=== PATIENT | male | born 1990 | race Two or more races ===

== ENCOUNTER 2018-04-17 11:45 | Emergency (ER) | payer SELFPAY ==
[~2018-04-17] VITALS: Ht 182.9 cm; Wt 79.4 kg
[2018-04-17 12:15] VITALS: BP 144/88
[2018-04-17] MEDS ORDERED: MELA3TAB2 PO (12:37)
--- NOTE | 2018-04-17 12:37 | PHYS DOC ---
Past Medical History Past Medical History: No Pertinent History Past Surgical History: No Surgical History Additional Information: Non-smoker Alcohol Use: Occasionally Drug Use: None Adult General Chief Complaint Chief Complaint: Insomnia HPI HPI 27 year old male presents with reports of 2 week history of difficulty sleeping for the last 2 weeks. Reports was seen 2 days ago in clinic and was started on trazadone 50mg. Patient reports after taking the trazadone he started to have some increased palpitations. Reports he has some increased life stressors recently. Reports he is home all day because he is not working. Reports he will start to fall asleep and then "jolts awake" and cannot sleep again. Reports has been worse over the last week. Denies fever/chills. Denies trauma. Denies N/V/D. Denies suicidal or homicidal ideation. Review of Systems Review of Systems Constitutional: Denies fever or chills [] Eyes: Denies change in visual acuity, redness, or eye pain [] HENT: Denies nasal congestion or sore throat [] Respiratory: Denies cough or shortness of breath [] Cardiovascular: Denies chest pain; reports some palpitations after taking trazadone GI: Denies abdominal pain, nausea, vomiting, or diarrhea [] : Denies dysuria or hematuria [] Musculoskeletal: Denies back pain or joint pain [] Integument: Denies rash or skin lesions [] Neurologic: Reports intermittent headache; denies focal weakness or sensory changes [] Psychiatric: Reports anxiety and insomnia; denies suicidal or homicidal ideation. Complete systems were reviewed and found to be within normal limits, except as documented in this note. Current Medications Current Medications Current Medications Medications (Trade) Dose Ordered Sig/Wilda Start Time Stop Time Status Last Admin Dose Admin Lorazepam (Ativan) 0.5 mg 1X ONCE 04/17/18 12:45 04/17/18 12:46 DC 04/17/18 12:58 0.5 MG Allergies Allergies Allergies Coded Allergies Type Severity Reaction Last Updated Verified Penicillins Allergy Intermediate heart racing 04/17/18 Yes Physical Exam Physical Exam Constitutional: Well developed, well nourished, anxious HENT: Normocephalic, atraumatic, oropharynx moist Eyes: PERRL, EOMI, conjunctiva normal, no discharge. [] Neck: Normal range of motion, no tenderness, supple, no meningeal signs Cardiovascular: Heart rate regular rhythm, no murmur [] Lungs & Thorax: Bilateral breath sounds clear to auscultation [] Abdomen: Soft, no tenderness Skin: Warm, dry, no erythema, no rash. [] Back: No tenderness, no CVA tenderness. [] Extremities: No tenderness, ROM intact, no edema. [] Neurologic: Alert and oriented X 3, no motor or sensory deficits noted, no focal deficits noted. [] Psychologic: Affect anxious, denies suicidal or homicidal ideation Current Patient Data Vital Signs Vital Signs Date Time Temp Pulse Resp B/P (MAP) Pulse Ox O2 Delivery O2 Flow Rate FiO2 04/17/18 12:15 98.7 88 16 144/88 (106) 98 Room Air 98.7 EKG EKG [] Radiology/Procedures Radiology/Procedures [] Course & Med Decision Making Course & Med Decision Making Patient presents with history of insomnia x 2 weeks. Worse over the last week. Reports increased anxiety and life stressors. Denies suicidal or homicidal ideation. Symptomatic treatment provided with Ativan 0.5mg x 1. Rx for melatonin given. Patient advised to discontinue trazadone due to it causing palpitations with patient. Referral to [facility] given. Patient stable for discharge with outpatient follow-up with PCP/outpatient psychiatric services ( [facility]). Discussed findings and plan with patient and family, who acknowledge understanding and agreement. Dragon Disclaimer Dragon Disclaimer This electronic medical record was generated, in whole or in part, using a voice recognition dictation system. Departure Departure Impression: Primary Impression: Insomnia Additional Impression: Anxiety Disposition: 01 HOME, SELF-CARE Condition: STABLE Referrals: UNKNOWN PCP NAME (PCP) Patient Instructions: Anxiety and Panic Attacks, [id number], Insomnia-Brief Additional Instructions: Please follow up with [facility] to help with your anxiety and insomnia Scripts Melatonin (MELATONIN) 3 Mg Tablet 1 TAB PO QHS, #30 TAB 0 Refills Prov: LIZETH SOL DO 04/17/18 Problem Qualifiers Primary Impression: Insomnia Insomnia type: unspecified Qualified Codes: G47.00 - Insomnia, unspecified LIZETH SOL DO Apr 17, 2018 12:37
[2018-04-17] MEDS ORDERED: LORazepam 1 MG TABLET PO ONE (12:45)
== END 2018-04-17 13:03 | disposition home or self-care (01) ==
LOC: ER 11:45
DX: G47.00 Insomnia, unspecified (principal); R51 Headache; R00.2 Palpitations; F41.9 Anxiety disorder, unspecified; Z88.0 Allergy status to penicillin
CPT/HCPCS: 99282

== ENCOUNTER 2019-03-05 16:23 | Emergency (ER) | payer SELFPAY ==
[~2019-03-05] VITALS: Ht 175.3 cm; Wt 74.8 kg
[~2019-03-05 16:23] MED LIST: MELA3TAB56 PO
[2019-03-05 16:30] VITALS: BP 138/88
[2019-03-05] MEDS ORDERED: NAPROXEN 500 MG TABLET PO STA (17:06)
[2019-03-05] MEDS ORDERED: HYDROcodone/APAP 5/325MG 1 TAB TABLET PO ONE (17:15)
[2019-03-05] MEDS ORDERED: DIPHTH,PERTUSS(ACELL),TET TOX 0.5 ML DISP.SYRIN. VAX IM ONE (17:15)
[2019-03-05] MEDS ORDERED: SULF1TAB24 PO (17:40)
[2019-03-05] MEDS ORDERED: NAPR-514 PO (17:40)
--- NOTE | 2019-03-05 17:40 | PHYS DOC ---
Past Medical History Past Medical History: No Pertinent History Past Surgical History: No Surgical History Alcohol Use: Occasionally Drug Use: None Adult General Chief Complaint Chief Complaint: FINGER INJURY HPI HPI Patient is a 28 year old male who presents with puncture wound to the left index finger. Patient states he was working the nail gun friendly when it accidentally went through his left index finger and also hit the middle finger. Patient is right-handed. Patient reports he removed the nail himself. Review of Systems Review of Systems Constitutional: Denies fever or chills [] Musculoskeletal: Puncture wound to the left index finger and middle finger. Integument: Denies rash or skin lesions [] Neurologic: Denies headache, focal weakness or sensory changes [] All other systems were reviewed and found to be within normal limits, except as documented in this note. Current Medications Current Medications Current Medications Medications (Trade) Dose Ordered Sig/Widla Start Time Stop Time Status Last Admin Dose Admin Acetaminophen/ Hydrocodone Bitart (Lortab 5/325) 2 tab 1X ONCE 03/05/19 17:15 03/05/19 17:16 DC 03/05/19 17:27 2 TAB Diphtheria/ Tetanus/Acell Pertussis (Boostrix) 0.5 ml ONCE ONCE 03/05/19 17:15 03/05/19 17:16 DC 03/05/19 17:28 0.5 ML Naproxen (Naprosyn) 500 mg 1X STAT 03/05/19 17:06 03/05/19 17:10 DC 03/05/19 17:27 500 MG Allergies Allergies Allergies Coded Allergies Type Severity Reaction Last Updated Verified Penicillins Allergy Intermediate heart racing 04/17/18 Yes Physical Exam Physical Exam Constitutional: Well developed, well nourished, no acute distress, non-toxic appearance. [] Skin: See extremity Back: No tenderness, no CVA tenderness. [] Extremities: Tiny puncture wound noted on the left lateral and medial index finger proximal end, there is another tiny puncture wound on the left middle finger proximal end. Full range of motion to the left fingers. +2 left radial pulse. Adequate radial, medial, ulnar sensation to the left fingers. Neurologic: Alert and oriented X 3, normal motor function, normal sensory function, no focal deficits noted. [] Psychologic: Affect normal, judgement normal, mood normal. [] Current Patient Data Vital Signs Vital Signs Date Time Temp Pulse Resp B/P (MAP) Pulse Ox O2 Delivery O2 Flow Rate FiO2 03/05/19 16:30 98.4 78 18 138/88 (105) 99 Room Air 98.4 EKG EKG [] Radiology/Procedures Radiology/Procedures [] Course & Med Decision Making Course & Med Decision Making Pertinent Labs and Imaging studies reviewed. (See chart for details) This is a 28-year-old male patient presenting to the ED today with puncture wound to the left index finger and middle finger, patient was working with a nail gun which accidentally went through his left index finger. Tetanus was updated. Left hand x-rays are negative for any acute findings. A shunt was discharged with cephalexin. Follow-up with PCP. Wound care instructions and return precautions provided. Dragon Disclaimer Dragon Disclaimer This electronic medical record was generated, in whole or in part, using a voice recognition dictation system. Departure Departure Impression: Primary Impression: Puncture wound Disposition: HOME, SELF-CARE Condition: STABLE Referrals: UNKNOWN PCP NAME (PCP) Follow-up with your doctor in 1-2 weeks Patient Instructions: Puncture Wound, [id number] Additional Instructions: You were seen for a puncture wound to the left index finger and middle finger. Your x-rays are negative for any fractures. Keep the area clean and dry. You can shower and wash her hands. Complete your antibiotics. Follow up with your doctor in 1-2 weeks Scripts Naproxen (NAPROXEN) 500 Mg Tablet 1 TAB PO BID for pain for 30 Days, #20 TAB 0 Refills Prov: YOCASTA MARTINES APRN 03/05/19 Sulfamethoxazole/Trimethoprim (BACTRIM DS TABLET) 1 Each Tablet 1 TAB PO BID for 10 Days, #20 TAB 0 Refills Prov: YOCASTA MARTINES APRN 03/05/19 YOCASTA MARTINES APRN Mar 05, 2019 17:40
--- NOTE | 2019-03-05 18:21 | RAD ---
LEFT HAND, VIEWS 3 Indication: Nail gun through index finger and puncture wound middle finger. Findings: On the AP view there is a tiny defect or gloria in the lateral cortex of the proximal phalanx of the middle finger. Correlate with site of puncture wound, this may be a tiny nondisplaced fracture. There is otherwise no acute fracture. There is no dislocation. Bony articulations are normal. There is no bony erosion. Mineralization is normal. There is no radiographically apparent soft tissue swelling or radiopaque foreign body. IMPRESSION: No acute displaced fracture. Please see above discussion. Electronically signed by: James Smiley MD (03/05/2019 6:12 PM) [facility]
== END 2019-03-05 18:26 | disposition home or self-care (01) ==
LOC: ER 16:23
DX: S61.231A Puncture wound without foreign body of left index finger without damage to nail, initial encounter (principal); S61.233A Puncture wound without foreign body of left middle finger without damage to nail, initial encounter; Z88.0 Allergy status to penicillin; Z79.899 Other long term (current) drug therapy; W31.89XA Contact with other specified machinery, initial encounter; Y93.89 Activity, other specified; Y92.89 Other specified places as the place of occurrence of the external cause; Y99.0 Civilian activity done for income or pay
CPT/HCPCS: 73130; 90471; 90715; 99284